=== PATIENT | female | born 1955 ===

== ENCOUNTER 2023-04-23 21:02 | Outpatient (REF) | payer MEDICARE, SELFPAY ==
[2023-04-23 21:38] LABS: COMMENT (LAB VIEW ONLY) 93.87 mg/dL; Microalb ug/mg Crea 14.8 ug/mg Cr
== END 2023-04-23 21:03 | disposition home or self-care (01) ==
LOC: NCHCN 21:02
PROVIDERS: Visit Provider Family Medicine
DX: E11.9 Type 2 diabetes mellitus without complications (principal)
CPT/HCPCS: 82043; 82570

== ENCOUNTER 2024-03-31 22:48 | Outpatient (REF) | payer MEDICARE, SELFPAY ==
[2024-03-30 22:08] LABS: BUN 14 mg/dL (7-18); CO2 28.2 mmol/L (21.0-32.0); Calcium 9.7 mg/dL (8.5-10.1); Estimated GFR 60.23 (mL/min/1.73m2); Glucose 167 mg/dL (74-106)
[2024-03-30 22:40] LABS: Anion Gap 7.8 mmol/L (3-11); Chloride 102 mmol/L (98-107); Potassium 4.2 mmol/L (3.5-5.1); Sodium 138 mmol/L (136-145)
[2024-03-31 11:53] LABS: Hemoglobin A1C 6.4 % (<5.7)
== END 2024-03-31 22:49 | disposition home or self-care (01) ==
LOC: NCHCN 22:48
PROVIDERS: Visit Provider Family Medicine
DX: E11.9 Type 2 diabetes mellitus without complications (principal); E66.9 Obesity, unspecified
CPT/HCPCS: 80048; 83036

== ENCOUNTER 2024-11-25 14:49 | Outpatient (REF) | payer MEDICARE, SELFPAY ==
[2024-11-25 22:52] LABS: COMMENT (LAB VIEW ONLY) 140.09 mg/dL; Microalb ug/mg Crea 8.9 ug/mg Cr
== END 2024-11-25 14:50 | disposition home or self-care (01) ==
LOC: NCHCN 14:49
PROVIDERS: PCP Family Medicine; Visit Provider Family Medicine
DX: E11.40 Type 2 diabetes mellitus with diabetic neuropathy, unspecified (principal)
CPT/HCPCS: 82043; 82570

== ENCOUNTER 2025-04-20 11:45 | Outpatient (REF) | payer MEDICARE, SELFPAY ==
[2025-04-20 15:51] LABS: Anion Gap 5.1 mmol/L (3-11); BUN 15 mg/dL (7-18); CO2 30.9 mmol/L (21.0-32.0); Calcium 10.0 mg/dL (8.5-10.1); Chloride 104 mmol/L (98-107); Estimated GFR 67.92 (mL/min/1.73m2); Glucose 193 mg/dL (74-106); Potassium 4.3 mmol/L (3.5-5.1); Sodium 140 mmol/L (136-145)
== END 2025-04-20 11:46 | disposition home or self-care (01) ==
LOC: NCHCN 11:45
PROVIDERS: PCP Family Medicine; Visit Provider Family Medicine
DX: E11.40 Type 2 diabetes mellitus with diabetic neuropathy, unspecified (principal)
CPT/HCPCS: 80048